=== PATIENT | female | born 1945 | race Caucasian/White ===

== ENCOUNTER 2016-10-09 15:27 | Emergency (ER) | payer OTHER, MEDICAID ==
[~2016-10-09] VITALS: Ht 157.5 cm; Wt 63.5 kg
[~2016-10-09 15:27] MED LIST: DIOVAN160 M1 PO; PRILOSEC40 MG PO; SYNTHROID0.075 MG PO
[2016-10-09 15:32] VITALS: BP 174/96
--- NOTE | 2016-10-09 16:23 | NUR ---
Patient ambulated to bed 6. RN evaluating patient at bedside.
--- NOTE | 2016-10-09 16:25 | NUR ---
PT PRESENTS TO ER W/C/O ABDOMINAL PAIN X1 WEEK. HX DM, DIVERTICULITIS. DENIES N/V/; SKIN IS PINK/WARM/DRY; AAOX4 WITH EVEN AND STEADY GAIT; LUNGS CLEAR BL; HR EVEN AND REGULAR; PT DENIES ANY FEVER, CP, SOB, OR COUGH AT THIS TIME; PATIENT STATES LEFT LOWER ABDOMINAL PAIN OF 9/10 AT THIS TIME; VSS; PATIENT POSITIONED FOR COMFORT; HOB ELEVATED; BEDRAILS UP X2; BED DOWN. ER MD MADE AWARE OF PT STATUS.
--- NOTE | 2016-10-09 17:34 | NUR ---
PT AMBULATED TO THE RESTROOM;NO ACUTE DISTRESS NOTED;
[2016-10-09] MEDS ORDERED: NACL 0.9% 500 ML IV ONE ×2 (18:25)
--- NOTE | 2016-10-09 18:26 | NUR ---
PT RESTING ON BED;NO ACUTE DISTRESS NOTED;WILL CONTINUE TO MONITOR PT.
--- NOTE | 2016-10-09 19:15 | NUR ---
REPORT RECEIVED FROM LALITO ZEPEDA
--- NOTE | 2016-10-09 19:24 | NUR ---
Pt report given to LALITO SOLOMON. Transfer of care at this time.
--- NOTE | 2016-10-09 19:25 | NUR ---
PT TO CT VIA WC IN STABLE CONDITION
--- NOTE | 2016-10-09 19:35 | NUR ---
PT RETURNED FROM CT VIA WC IN STABLE CONDITION
[2016-10-09] MEDS ORDERED: KETOROLAC 30 MG/ML VIAL IVP ONE (20:10)
[2016-10-09] MEDS ORDERED: ONDANSETRON 4 MG/2 ML VIAL IVP ONE (20:10)
[2016-10-09 20:25] VITALS: BP 132/62
--- NOTE | 2016-10-09 20:25 | NUR ---
Patient discharged with v/s stable. Written and verbal after care instructions given and explained. Patient alert, oriented and verbalized understanding of instructions. Ambulatory with steady gait. All questions addressed prior to discharge. ID band removed. Patient advised to follow up with PMD. Rx of TRAMADOL AND ZOFRAN given. Patient educated on indication of medication including possible reaction and side effects. Opportunity to ask questions provided and answered. COPY OF CT SCAN REPORT GIVEN TO PT.
== END 2016-10-09 20:25 | disposition home or self-care (01) ==
LOC: MED 15:27
DX: R10.32 Left lower quadrant pain (principal); R07.89 Other chest pain; E11.9 Type 2 diabetes mellitus without complications; I10 Essential (primary) hypertension; Z88.6 Allergy status to analgesic agent; Z88.8 Allergy status to other drugs, medicaments and biological substances; Z79.899 Other long term (current) drug therapy; Z90.710 Acquired absence of both cervix and uterus
CPT/HCPCS: 36415; 71010; 74022; 74176; 80053; 81003; 81025; 83605; 84484; 85025; 85610; 85730; 87040; 87086; 93005; 96360; 96361; 99285; J7030